=== PATIENT | female | born 1995 | race Caucasian/White ===

== ENCOUNTER 2024-04-10 20:55 | Emergency (ER) | payer MEDICAID ==
[~2024-04-10] VITALS: Ht 167.6 cm; Wt 72.7 kg
[2024-04-10 22:36] VITALS: BP 105/68; PULSE 88; RESP 19; TEMP 98.5; O2SAT 99
[2024-04-10] MEDS: TETANUS-DIPTH-ACEL PERTUSSIS 0.5ML SYR Tdap IM ONE (23:18)
== END 2024-04-10 23:24 | disposition home or self-care (01) ==
LOC: ER 20:55
DX: S61.511A Laceration without foreign body of right wrist, initial encounter (principal); W54.0XXA Bitten by dog, initial encounter; Y93.9 Activity, unspecified; Y92.89 Other specified places as the place of occurrence of the external cause; Y99.8 Other external cause status
CPT/HCPCS: 12002; 90471; 90715